=== PATIENT | male | born 1955 | race Caucasian/White ===

== ENCOUNTER 2023-01-12 08:31 | Day surgery (SDC) | payer BC ==
[~2023-01-12] VITALS: Ht 182.9 cm; Wt 107.8 kg
[2023-01-12] MEDS ORDERED: ALBU90OI INH (09:38)
[2023-01-12] MEDS ORDERED: ATOR40TA PO (09:38)
[2023-01-12] MEDS ORDERED: ELIQUIS5 M2 PO (09:38)
[2023-01-12] MEDS ORDERED: GLIP5 PO (09:39)
[2023-01-12] MEDS ORDERED: EPLE25 PO (09:39)
[2023-01-12] MEDS ORDERED: HYDCHL25 PO (09:39)
[2023-01-12] MEDS ORDERED: LEFL20 PO (09:41)
[2023-01-12] MEDS ORDERED: LEVSOD112 PO (09:41)
[2023-01-12] MEDS ORDERED: LOSA50 PO (09:41)
[2023-01-12] MEDS ORDERED: METF500C PO (09:42)
[2023-01-12] MEDS ORDERED: METTREX2.5 PO (09:42)
[2023-01-12] MEDS ORDERED: KAPSPARGO SPRIN50 MG PO (09:42)
[2023-01-12] MEDS ORDERED: ANORO ELLIPTA1 EACH INH (09:43)
[2023-01-12] MEDS ORDERED: TRAM50 PO (09:43)
--- NOTE | 2023-01-12 09:51 | NUR ---
01/12/23 0951 Jb Garner CALL LIGHT WITHIN REACH. TETRACAINE IN LEFT EYE AT 0938 AND PLEDGETT IN AT 0939
[2023-01-12 11:01] VITALS: BP 127/94
--- NOTE | 2023-01-12 11:33 | NUR ---
01/12/23 1133 Aurelio Sanchez PT HAD MODERATE SWELLING AND DISCOLORATION AROUND IV SITE AFTER IV REMOVAL. HE DENIED PAIN AND WAS GIVEN A WARM PACK. SWELLING APPEARED TO BE RESIDING AT TIME OF DISCHARGE. CATHATER WAS INSPECTED AND ENTIRE DEVICE HAD BEEN REMOVED.
== END 2023-01-12 11:30 | disposition home or self-care (01) ==
LOC: ORSCSDS 08:31
PROVIDERS: Student in an Organized Health Care Education/Training Program
PROC: 08DK3ZZ Extraction of Left Lens, Percutaneous Approach (ICD-10-PCS; principal; 2023-01-12 10:00)
DX: E11.36 Type 2 diabetes mellitus with diabetic cataract (principal); H25.13 Age-related nuclear cataract, bilateral; I48.91 Unspecified atrial fibrillation; I10 Essential (primary) hypertension; J44.9 Chronic obstructive pulmonary disease, unspecified; E66.9 Obesity, unspecified; Z68.32 Body mass index [BMI] 32.0-32.9, adult; Z79.84 Long term (current) use of oral hypoglycemic drugs; Z87.891 Personal history of nicotine dependence; Z79.01 Long term (current) use of anticoagulants; Z79.899 Other long term (current) drug therapy
CPT/HCPCS: 82947; J2250; J3010; J7040; V2632

== ENCOUNTER 2023-05-12 07:02 | Day surgery (SDC) | payer BC ==
[~2023-05-12 07:02] MED LIST: ALBU90OI INH; ANORO ELLIPTA1 EACH INH; ATOR40TA PO; ELIQUIS5 M2 PO; EPLE25 PO; FOLI1 PO; GLIP5 PO; HYDCHL25 PO; JARDIANCE10 MG PO; KAPSPARGO SPRIN50 MG PO; LEFL20 PO; LEVSOD112 PO; LOSA50 PO; METF500C PO; METTREX2.5 PO; SOAANZ20 M3 PO; SULF500 PO; TRAM50 PO; Tambocor100 MG PO
[2023-05-12 07:34] VITALS: BP 128/92
[2023-05-12 07:35] VITALS: BP 128/92
--- NOTE | 2023-05-12 07:42 | NUR ---
LUNG TONES NO WHEEZES NOTED
--- NOTE | 2023-05-12 07:50 | NUR ---
PT'S IN ROOM; CALL LIGHT IN REACH.
--- NOTE | 2023-05-12 08:13 | NUR ---
FERNANDA GREGG IN ROOM TO ASSIST. PT TOLERATED 200J SYNCHRONIZED SHOCK WELL.
--- NOTE | 2023-05-12 08:30 | NUR ---
PT'S IN ROOM.
--- NOTE | 2023-05-12 08:37 | NUR ---
DR LINDO IN ROOM TO SEE PT AND HIS .
--- NOTE | 2023-05-12 09:15 | NUR ---
DISCHARGE INSTRUCTIONS REVIEWED ALL QUESTIONS ANSWERED. 23 G IV DISCONTINUED FROM RIGHT HAND WITH INTACT CANNULA. PT ESCORTED OUT VIA WHEELCHAIR ESCORT.
== END 2023-05-12 22:49 | disposition home or self-care (01) ==
LOC: MHTC 07:02
DX: I48.19 Other persistent atrial fibrillation (principal); E78.5 Hyperlipidemia, unspecified; E11.9 Type 2 diabetes mellitus without complications; E03.9 Hypothyroidism, unspecified; M06.9 Rheumatoid arthritis, unspecified; J44.9 Chronic obstructive pulmonary disease, unspecified; I50.30 Unspecified diastolic (congestive) heart failure; I11.0 Hypertensive heart disease with heart failure
CPT/HCPCS: 92960; 93005; 93010; 99152; J1200; J2250; J2310; J3010; J7030